=== PATIENT | male | born 1965 | race Caucasian/White ===

== ENCOUNTER 2024-02-01 15:20 | Inpatient (IN) | payer MEDICAID ==
[~2024-02-01] VITALS: Ht 175.3 cm; Wt 147.4 kg
[2024-02-01 15:20] VITALS: BP_SYST 138; PULSE 117; RESP 20; TEMP 103.3; O2SAT 98
[2024-02-01] MEDS ORDERED: iohexoL 350 mgI/mL, 100 ML INFUS..BTL IV ONE (15:25)
[2024-02-01] MEDS ORDERED: AMMONIA 1 EA TOWELETTE INH ONE (15:58)
[2024-02-01 16:03] LABS: HEMATOCRIT 39.1 % (36-54); HEMOGLOBIN 13.6 g/dL (14.0-18.0); MEAN CORPUSCULAR HEMOGLOBIN 29 pg (27-31); MEAN CORPUSCULAR HGB CONC 35 % (32-36); MEAN CORPUSCULAR VOLUME 82 fL (79.0-98.0); PLATELET COUNT (AUTO) 141 K/uL (130-430); RED BLOOD CELL COUNT(AUTO) 4.75 MIL/uL (4.2-6.2); RED CELL DISTRIBUTION WIDTH 13.8 % (9.0-15.0)
[2024-02-01 16:07] LABS: WHITE BLOOD COUNT (AUTO) 28.6 K/uL (4.8-10.8)
[2024-02-01 16:13] LABS: INR 1.4 (0.80-1.20); PROTHROMBIN TIME 14.3 SECS (9.5-12.5)
[2024-02-01 16:18] LABS: BAND % (MANUAL) 11 % (0-6); BASOPHILS % (MANUAL) 0 % (0-2); EOSINOPHILS % (MANUAL) 0 % (0-7); LYMPHOCYTES % (MANUAL) 3 % (20-46); MONOCYTES % (MANUAL) 3 % (0-11); PLATELET ESTIMATE ADEQUATE (ADEQUATE)
[2024-02-01] MEDS ORDERED: cefTRIAXone 2 GM VIAL ONE (16:28)
[2024-02-01 16:44] LABS: ALANINE AMINOTRANSFERASE 16 U/L (12-78); ALBUMIN 2.9 g/dL (3.4-4.8); ANION GAP 9 (5-15); ASPARTATE AMINOTRANSFERASE 19 U/L (10-37); BILIRUBIN,DIRECT 0.1 mg/dL (0.0-0.3); CALCIUM 7.9 mg/dL (8.4-11.0); CARBON DIOXIDE 25 mmol/L (23-29); CHLORIDE 94 mmol/L (98-107); CREATINE KINASE, TOTAL 162 U/L (39-308); CREATININE 1.19 mg/dL (0.55-1.30); GFR AFRICAN AMERICAN 81 mL/min (>90); GLUCOSE 210 mg/dL (74-106); POTASSIUM 3.6 mmol/L (3.5-5.1); SALICYLATE 1 mg/dL (3-30); SODIUM SERUM 128 mmol/L (136-145); TOTAL BILIRUBIN 0.9 mg/dL (0.0-1.0); UREA NITROGEN, BLOOD 19 mg/dL (8-21)
[2024-02-01 16:45] LABS: ACETAMINOPHEN < 1 ug/mL (1-30); ALCOHOL, BLOOD < 3 mg/dL (<10); GFR NON AFRICAN-AMERICAN 67 mL/min (>90)
[2024-02-01 16:54] LABS: ACETONE, SERUM NEGATIVE (NEGATIVE)
[2024-02-01 16:55] LABS: BILIRUBIN,URINE NEGATIVE (NEGATIVE); BLOOD, URINE 1+ (NEGATIVE); COLOR,URINE YELLOW (YELLOW); GLUCOSE,URINE NEGATIVE (NEGATIVE); KETONES,URINE NEGATIVE (NEGATIVE); LEUKOCYTE ESTERASE ,URINE 1+ (NEGATIVE); NITRITE, URINE NEGATIVE (NEGATIVE); PROTEIN URINE 1+ (NEGATIVE)
[2024-02-01 17:02] LABS: CLARITY/URINE HAZY (CLEAR)
[2024-02-01 17:03] LABS: BACTERIA,URINE MODERATE /HPF (None Seen); MUCUS,URINE None Seen /LPF (None Seen); RBC,URINE NONE SEEN /HPF (0-3)
[2024-02-01 17:07] LABS: BARBITURATE, URINE NEGATIVE (NEG <=200); BENZODIAZEPINE, URINE NEGATIVE (NEG <=150); CANNABINOID, URINE NEGATIVE (NEG <=50); COCAINE, URINE NEGATIVE (NEG <=150); METHAMPHETAMINES SCREEN,URINE POSITIVE (NEG <=500); OPIATE, URINE NEGATIVE (NEG <=100); PHENCYCLIDINE SCREEN,URINE NEGATIVE (NEG <=25); UR TRICYCLIC ANTIDEPRESSANTS NEGATIVE (NEG <=300); URINE AMPHETAMINE POSITIVE (NEG <=500); URINE METHADONE NEGATIVE (NEG <=200); URINE OXYCODONE SCREEN NEGATIVE (NEG <=100)
[2024-02-01] MEDS: IBUPROFEN 800 MG TABLET PO ONE (18:39)
[2024-02-01] MEDS: NACL 0.9% 1,000 ML IV ONE (20:09)
[2024-02-01] MEDS: ACETAMINOPHEN 500 MG TABLET PO ONE (20:19)
[2024-02-01] MEDS ORDERED: MAGNESIUM SULFATE 50 ML IV PRN (20:45)
[2024-02-01] MEDS ORDERED: DEXTROSE 50% JECT 50 ML DISP.SYRIN IVP PRN (20:45)
[2024-02-01] MEDS ORDERED: ONDANSETRON HCL 4 MG/2 ML VIAL IVP PRN (20:45)
[2024-02-01] MEDS ORDERED: ACETAMINOPHEN 325 MG TABLET PO PRN (20:45)
[2024-02-01] MEDS ORDERED: MUPIROCIN 2% TOPICAL OINTMENT 22 GM NS PRN (20:45)
[2024-02-01] MEDS: HEPARIN SODIUM,PORCINE 5,000 UNITS/ML VIAL SUBCUT SCH (21:19)
[2024-02-01] MEDS ORDERED: HEPARIN SODIUM,PORCINE 5,000 UNITS/ML VIAL ONE (21:19)
[2024-02-01 21:56] VITALS: BP_SYST 115; PULSE 96; RESP 20; TEMP 98.6; O2SAT 94
[2024-02-01] MEDS: NACL 0.9% 1,000 ML IV SCH (22:35)
[2024-02-01] MEDS: VANCOMYCIN HCL 1.25 GM/NS 250 ML IV SCH (22:36)
[2024-02-02] VITALS: BP_SYST 113; PULSE 91; RESP 20; TEMP 99; O2SAT 97
[2024-02-02 05:19] LABS: BASOPHILS # (AUTO) 0.1 K/uL (0.0-0.2); BASOPHILS % (AUTO) 0.2 % (0.0-2.0); HEMATOCRIT 39.1 % (36-54); HEMOGLOBIN 13.4 g/dL (14.0-18.0); LYMPHOCYTES # (AUTO) 1.2 K/uL (1.0-5.5); LYMPHOCYTES % (AUTO) 5.6 % (20.5-51.5); MEAN CORPUSCULAR HEMOGLOBIN 29 pg (27-31); MEAN CORPUSCULAR HGB CONC 34 % (32-36); MEAN CORPUSCULAR VOLUME 84 fL (79.0-98.0); MONOCYTES # (AUTO) 1.6 K/uL (0.0-1.0); MONOCYTES % (AUTO) 7.2 % (1.7-9.3); NEUTROPHILS # (AUTO) 19.4 K/uL (1.8-7.7); PLATELET COUNT (AUTO) 136 K/uL (130-430); RED BLOOD CELL COUNT(AUTO) 4.67 MIL/uL (4.2-6.2); RED CELL DISTRIBUTION WIDTH 13.8 % (9.0-15.0); WHITE BLOOD COUNT (AUTO) 22.3 K/uL (4.8-10.8)
[2024-02-02 05:41] LABS: CALCIUM 7.8 mg/dL (8.4-11.0); CREATININE 1.01 mg/dL (0.55-1.30)
[2024-02-02 08:00] VITALS: BP_SYST 112; PULSE 87; RESP 20; TEMP 96.2; O2SAT 94
[2024-02-02 08:31] VITALS: O2SAT 94
[2024-02-02] MEDS: LINEZOLID 300 ML IV SCH (08:55)
[2024-02-02] MEDS: PIPERACILLIN/TAZO 3.375 GM in D5W 50 ML IV SCH (08:55)
[2024-02-02 11:07] VITALS: BP_SYST 120; PULSE 73; RESP 16; TEMP 98.2; O2SAT 93
[2024-02-02] MEDS: INSULIN LISPRO SLIDING SCALE 100 UNITS/ML, 3 ML VIAL (humaLOG) SUBCUT PRN (11:31)
[2024-02-02] MEDS: HYDROcodone/ACETAMIN 5-325 MG TAB (NORCO/ VICODIN) PO PRN (14:39)
[2024-02-02 14:55] VITALS: BP_SYST 128; PULSE 97; RESP 16; TEMP 97.1; O2SAT 98
[2024-02-02] MEDS: VANCOMYCIN HCL 1.25 GM/NS 250 ML IV SCH (15:45)
[2024-02-02] MEDS ORDERED: ACETAMINOPHEN 500 MG TABLET PO PRN ×2 (19:45)
[2024-02-02] MEDS: ACETAMINOPHEN 500 MG TABLET PO PRN (19:46)
[2024-02-02 20:00] VITALS: BP_SYST 141; PULSE 96; RESP 20; TEMP 100.1; O2SAT 97
[2024-02-02] MEDS: NACL 0.9% 1,000 ML IV SCH (22:35)
[2024-02-03 01:17] VITALS: BP_SYST 103; PULSE 53; RESP 18; TEMP 98.4; O2SAT 97
[2024-02-03] MEDS: POTASSIUM CHLORIDE 20 MEQ TABLET.ER PO PRN (01:34)
[2024-02-03] MEDS: LORazepam 2 MG/ML VIAL IVP PRN (01:52)
[2024-02-03] MEDS ORDERED: VANCOMYCIN HCL 1.25 GM/NS 250 ML IV SCH (06:00)
[2024-02-03 06:16] LABS: BASOPHILS % (AUTO) 0.1 % (0.0-2.0); EOSINOPHILS # (AUTO) 0.1 K/uL (0.0-0.4); EOSINOPHILS % (AUTO) 0.5 % (0.0-4.0); HEMATOCRIT 37.4 % (36-54); HEMOGLOBIN 12.7 g/dL (14.0-18.0); LYMPHOCYTES # (AUTO) 1.6 K/uL (1.0-5.5); LYMPHOCYTES % (AUTO) 12.3 % (20.5-51.5); MEAN CORPUSCULAR HEMOGLOBIN 29 pg (27-31); MEAN CORPUSCULAR HGB CONC 34 % (32-36); MEAN CORPUSCULAR VOLUME 84 fL (79.0-98.0); MONOCYTES # (AUTO) 2.1 K/uL (0.0-1.0); NEUTROPHILS # (AUTO) 9.2 K/uL (1.8-7.7); NEUTROPHILS % (AUTO) 71.1 % (40.0-70.0); PLATELET COUNT (AUTO) 137 K/uL (130-430); RED BLOOD CELL COUNT(AUTO) 4.44 MIL/uL (4.2-6.2)
[2024-02-03 06:40] LABS: CALCIUM 8.2 mg/dL (8.4-11.0); CREATININE 0.77 mg/dL (0.55-1.30); POTASSIUM 3.5 mmol/L (3.5-5.1)
[2024-02-03 07:43] VITALS: BP_SYST 146; PULSE 103; RESP 19; TEMP 98.7; O2SAT 93
[2024-02-03 11:14] VITALS: BP_SYST 140; PULSE 95; RESP 16; TEMP 98.4; O2SAT 96
[2024-02-03] MEDS: PIPERACILLIN/TAZO 3.375 GM in D5W 50 ML IV SCH (12:20)
[2024-02-03] MEDS: VANCOMYCIN HCL 1.25 GM/NS 250 ML IV SCH (12:20)
[2024-02-03 15:04] VITALS: BP_SYST 177; PULSE 86; RESP 15; TEMP 98.2; O2SAT 95
[2024-02-03] MEDS ORDERED: hydrALAZINE HCL 20 MG/ML VIAL IVP PRN (18:00)
[2024-02-03 20:00] VITALS: BP_SYST 152; PULSE 94; RESP 20; TEMP 99.2; O2SAT 94
[2024-02-04 00:05] VITALS: BP_SYST 146; PULSE 92; RESP 18; TEMP 97.6; O2SAT 99
[2024-02-04 05:49] LABS: BASOPHILS % (AUTO) 0.4 % (0.0-2.0); EOSINOPHILS # (AUTO) 0.1 K/uL (0.0-0.4); EOSINOPHILS % (AUTO) 1.1 % (0.0-4.0); HEMATOCRIT 36.7 % (36-54); HEMOGLOBIN 12.7 g/dL (14.0-18.0); LYMPHOCYTES % (AUTO) 19.3 % (20.5-51.5); MEAN CORPUSCULAR HEMOGLOBIN 29 pg (27-31); MEAN CORPUSCULAR HGB CONC 35 % (32-36); MEAN CORPUSCULAR VOLUME 84 fL (79.0-98.0); MONOCYTES # (AUTO) 1.6 K/uL (0.0-1.0); MONOCYTES % (AUTO) 15.3 % (1.7-9.3); NEUTROPHILS # (AUTO) 6.5 K/uL (1.8-7.7); NEUTROPHILS % (AUTO) 63.9 % (40.0-70.0); PLATELET COUNT (AUTO) 150 K/uL (130-430); RED BLOOD CELL COUNT(AUTO) 4.38 MIL/uL (4.2-6.2); RED CELL DISTRIBUTION WIDTH 13.9 % (9.0-15.0); WHITE BLOOD COUNT (AUTO) 10.1 K/uL (4.8-10.8)
[2024-02-04 05:55] LABS: CALCIUM 8.3 mg/dL (8.4-11.0); CREATININE 0.66 mg/dL (0.55-1.30); POTASSIUM 3.8 mmol/L (3.5-5.1)
[2024-02-04 07:35] VITALS: BP_SYST 143; PULSE 93; RESP 18; TEMP 97.9; O2SAT 97
[2024-02-04] MEDS: DOCUSATE SODIUM 100 MG CAPSULE PO PRN (09:12)
[2024-02-04] MEDS ORDERED: hydrALAZINE HCL 25 MG TABLET PO PRN (10:45)
[2024-02-04 12:32] VITALS: BP_SYST 144; PULSE 91; RESP 19; TEMP 97.8; O2SAT 97
[2024-02-04] MEDS: LOSARTAN POTASSIUM 25 MG TABLET PO ONE (12:50)
[2024-02-04] MEDS: HEPARIN SODIUM,PORCINE 5,000 UNITS/ML VIAL SUBCUT SCH (14:20)
[2024-02-04 16:48] VITALS: BP_SYST 142; PULSE 92; RESP 18; TEMP 98; O2SAT 98
[2024-02-04 20:00] VITALS: BP_SYST 141; PULSE 95; RESP 18; TEMP 98.6; O2SAT 96
[2024-02-04] MEDS: ZOLPIDEM TARTRATE 5 MG TABLET PO PRN (23:17)
[2024-02-05 00:10] VITALS: BP_SYST 153; PULSE 82; RESP 20; TEMP 98.2; O2SAT 97
[2024-02-05 08:00] VITALS: BP_SYST 157; PULSE 75; RESP 16; TEMP 98.1; O2SAT 94
[2024-02-05] MEDS ORDERED: LOSARTAN POTASSIUM 25 MG TABLET PO SCH (09:00)
[2024-02-05] MEDS: LOSARTAN POTASSIUM 50 MG TABLET (COZAAR) PO SCH (10:44)
[2024-02-05 11:21] LABS: BASOPHILS % (AUTO) 0.5 % (0.0-2.0); EOSINOPHILS # (AUTO) 0.2 K/uL (0.0-0.4); EOSINOPHILS % (AUTO) 1.7 % (0.0-4.0); HEMATOCRIT 39.3 % (36-54); HEMOGLOBIN 13.5 g/dL (14.0-18.0); LYMPHOCYTES # (AUTO) 1.8 K/uL (1.0-5.5); LYMPHOCYTES % (AUTO) 18.8 % (20.5-51.5); MEAN CORPUSCULAR HEMOGLOBIN 29 pg (27-31); MEAN CORPUSCULAR HGB CONC 34 % (32-36); MEAN CORPUSCULAR VOLUME 84 fL (79.0-98.0); MONOCYTES # (AUTO) 1.2 K/uL (0.0-1.0); MONOCYTES % (AUTO) 12.9 % (1.7-9.3); NEUTROPHILS # (AUTO) 6.4 K/uL (1.8-7.7); NEUTROPHILS % (AUTO) 66.1 % (40.0-70.0); PLATELET COUNT (AUTO) 200 K/uL (130-430); RED BLOOD CELL COUNT(AUTO) 4.66 MIL/uL (4.2-6.2); RED CELL DISTRIBUTION WIDTH 13.7 % (9.0-15.0); WHITE BLOOD COUNT (AUTO) 9.6 K/uL (4.8-10.8)
[2024-02-05 11:27] LABS: CALCIUM 8.6 mg/dL (8.4-11.0); CREATININE 0.68 mg/dL (0.55-1.30); POTASSIUM 4.1 mmol/L (3.5-5.1)
[2024-02-05 12:57] VITALS: BP_SYST 146; PULSE 85; RESP 19; TEMP 98.4; O2SAT 98
[2024-02-05 16:51] VITALS: BP_SYST 150; PULSE 80; RESP 17; TEMP 98.2; O2SAT 95
[2024-02-05 19:20] VITALS: BP_SYST 155; PULSE 90; RESP 18; TEMP 97.7; O2SAT 94
[2024-02-06 00:40] VITALS: BP_SYST 151; PULSE 83; RESP 16; TEMP 97.7; O2SAT 95
[2024-02-06 06:25] LABS: BASOPHILS # (AUTO) 0.1 K/uL (0.0-0.2); BASOPHILS % (AUTO) 0.6 % (0.0-2.0); EOSINOPHILS # (AUTO) 0.2 K/uL (0.0-0.4); EOSINOPHILS % (AUTO) 2.2 % (0.0-4.0); HEMATOCRIT 39.7 % (36-54); HEMOGLOBIN 13.6 g/dL (14.0-18.0); LYMPHOCYTES # (AUTO) 2.4 K/uL (1.0-5.5); LYMPHOCYTES % (AUTO) 21.9 % (20.5-51.5); MEAN CORPUSCULAR HEMOGLOBIN 29 pg (27-31); MEAN CORPUSCULAR HGB CONC 34 % (32-36); MEAN CORPUSCULAR VOLUME 84 fL (79.0-98.0); MONOCYTES # (AUTO) 1.5 K/uL (0.0-1.0); MONOCYTES % (AUTO) 13.2 % (1.7-9.3); NEUTROPHILS # (AUTO) 6.8 K/uL (1.8-7.7); NEUTROPHILS % (AUTO) 62.1 % (40.0-70.0); PLATELET COUNT (AUTO) 224 K/uL (130-430); RED BLOOD CELL COUNT(AUTO) 4.76 MIL/uL (4.2-6.2); RED CELL DISTRIBUTION WIDTH 13.6 % (9.0-15.0)
[2024-02-06 06:55] LABS: CALCIUM 8.5 mg/dL (8.4-11.0); CREATININE 0.75 mg/dL (0.55-1.30); POTASSIUM 4.1 mmol/L (3.5-5.1)
[2024-02-06 08:00] VITALS: BP_SYST 127; PULSE 92; RESP 20; TEMP 98.5; O2SAT 96
[2024-02-06 11:15] VITALS: BP_SYST 160; PULSE 74; RESP 15; TEMP 97.5; O2SAT 95
[2024-02-06] MEDS ORDERED: hydrALAZINE HCL 20 MG/ML VIAL IVP PRN (11:30)
[2024-02-06 11:56] VITALS: BP_SYST 135; PULSE 88; RESP 16; TEMP 97.5; O2SAT 95
[2024-02-06] MEDS ORDERED: CEFT500V5 INJ (13:15)
[2024-02-06] MEDS ORDERED: Vancomycin Per Pharmacy IV (13:15)
[2024-02-06] MEDS ORDERED: LOSA-413 PO (13:15)
[2024-02-06] MEDS ORDERED: METF-380 PO (13:15)
[2024-02-06 20:03] VITALS: BP_SYST 110; PULSE 89; RESP 20; TEMP 97.3; O2SAT 95
[2024-02-06] MEDS: LOSARTAN POTASSIUM 50 MG TABLET (COZAAR) PO SCH (21:07)
[2024-02-07 00:46] VITALS: BP_SYST 123; PULSE 91; RESP 19; TEMP 97.9; O2SAT 95
[2024-02-07 08:00] VITALS: BP_SYST 153; PULSE 78; RESP 16; TEMP 98.3; O2SAT 97
[2024-02-07 12:00] VITALS: BP_SYST 152; PULSE 69; RESP 20; TEMP 98.1; O2SAT 96
[2024-02-07] MEDS ORDERED: DOXY100C5 PO (15:41)
[2024-02-07] MEDS ORDERED: AUG875 PO (15:41)
[2024-02-07 15:56] VITALS: BP_SYST 152; PULSE 69; RESP 20; TEMP 98.1; O2SAT 96
[2024-02-07] MEDS ORDERED: DOXYCYCLINE HYCLATE 100 MG TABLET PO SCH (21:00)
[2024-02-07] MEDS ORDERED: AMOXICILLIN/POTASSIUM CLAV 875 MG TABLET PO SCH (21:00)
== END 2024-02-07 16:20 | disposition home or self-care (01) | DRG 720 ==
LOC: SED 15:20 → STU 20:38 → EDBD 20:38 → STU 21:37 → SMU 02-04 10:09
PROVIDERS: ADMIT General Practice; ATTEND General Practice
PROC: 05HC33Z Insertion of Infusion Device into Left Basilic Vein, Percutaneous Approach (ICD-10-PCS; principal; 2024-02-04)
DX: A41.9 Sepsis, unspecified organism (principal); G93.41 Metabolic encephalopathy; E44.0 Moderate protein-calorie malnutrition; L03.116 Cellulitis of left lower limb; I88.8 Other nonspecific lymphadenitis; E11.9 Type 2 diabetes mellitus without complications; E66.01 Morbid (severe) obesity due to excess calories; I10 Essential (primary) hypertension; N39.0 Urinary tract infection, site not specified; Z79.899 Other long term (current) drug therapy; Z68.42 Body mass index [BMI] 45.0-49.9, adult; Z68.41 Body mass index [BMI] 40.0-44.9, adult
CPT/HCPCS: 36415; 70450-TC; 70496; 70498; 71045; 80048; 80076; 80202; 80307; 81000; 81001; 81015; 82009; 82140; 82550; 82948; 83037; 83605; 83735; 84484; 85007; 85025; 85027; 85610; 85730; 87040; 87081; 87086; 93306; 93970; 96361; 96365; 97112-GP; 97116-GP; 99291; G0378; G0480; G0481; G0482; J0360; J0696; J1644; J2020; J2060; J2543; J3370; J7060; Q9967

== ENCOUNTER 2024-05-19 18:44 | Emergency (ER) | payer MEDICAID ==
[~2024-05-19] VITALS: Ht 180.3 cm; Wt 111.1 kg
[~2024-05-19 18:44] MED LIST: AUG875 PO; DOXY100C5 PO; LOSA-413 PO; METF-380 PO
[2024-05-19 19:03] VITALS: BP_SYST 124; PULSE 92; RESP 19; TEMP 98.5; O2SAT 95
[2024-05-19] MEDS ORDERED: SULF1TAB48 PO (19:26)
[2024-05-19] MEDS ORDERED: CEPH250C PO (19:26)
[2024-05-19] MEDS ORDERED: HYDR-3921 PO (19:27)
[2024-05-19] MEDS: SULFAMETHOXAZOLE/TRIMETHOPR DS 1 TABLET PO ONE (19:38)
[2024-05-19] MEDS: HYDROcodone/ACETAMIN 5-325 MG TAB (NORCO/ VICODIN) PO ONE (19:38)
[2024-05-19] MEDS: cephALEXin 500 MG CAPSULE PO ONE (19:44)
[2024-05-19 19:45] VITALS: BP_SYST 124; PULSE 92; RESP 19; TEMP 98.5; O2SAT 95
[2024-05-19] MEDS ORDERED: cephALEXin 500 MG CAPSULE ONE (19:46)
== END 2024-05-19 19:45 | disposition home or self-care (01) ==
LOC: SED 18:44
DX: L03.115 Cellulitis of right lower limb (principal); F17.200 Nicotine dependence, unspecified, uncomplicated; Z79.899 Other long term (current) drug therapy; Z79.2 Long term (current) use of antibiotics
CPT/HCPCS: 99284

== ENCOUNTER 2024-05-20 14:58 | Inpatient (IN) | payer MEDICAID ==
[~2024-05-20] VITALS: Ht 180.3 cm; Wt 149.2 kg
[~2024-05-20 14:58] MED LIST changes: +CEPH250C PO; +HYDR-3921 PO; +SULF1TAB48 PO
[2024-05-20 15:05] VITALS: BP_SYST 156; PULSE 91; RESP 20; TEMP 97.5; O2SAT 93
[2024-05-20 15:58] LABS: HEMOGLOBIN 13.1 g/dL (14.0-18.0)
[2024-05-20 16:02] LABS: BASOPHILS # (AUTO) 0.1 K/uL (0.0-0.2); BASOPHILS % (AUTO) 0.5 % (0.0-2.0); EOSINOPHILS # (AUTO) 0.2 K/uL (0.0-0.4); EOSINOPHILS % (AUTO) 1.4 % (0.0-4.0); HEMATOCRIT 37.1 % (36-54); LYMPHOCYTES # (AUTO) 2.3 K/uL (1.0-5.5); LYMPHOCYTES % (AUTO) 18.1 % (20.5-51.5); MEAN CORPUSCULAR HEMOGLOBIN 30 pg (27-31); MEAN CORPUSCULAR HGB CONC 35 % (32-36); MEAN CORPUSCULAR VOLUME 84 fL (79.0-98.0); MONOCYTES # (AUTO) 1.2 K/uL (0.0-1.0); MONOCYTES % (AUTO) 9.9 % (1.7-9.3); NEUTROPHILS # (AUTO) 8.8 K/uL (1.8-7.7); NEUTROPHILS % (AUTO) 70.1 % (40.0-70.0); PLATELET COUNT (AUTO) 172 K/uL (130-430); RED BLOOD CELL COUNT(AUTO) 4.43 MIL/uL (4.2-6.2); RED CELL DISTRIBUTION WIDTH 13.4 % (9.0-15.0); WHITE BLOOD COUNT (AUTO) 12.6 K/uL (4.8-10.8)
[2024-05-20 16:24] LABS: ALBUMIN 3.1 g/dL (3.4-4.8); BILIRUBIN,DIRECT 0.1 mg/dL (0.0-0.3); CALCIUM 8.3 mg/dL (8.4-11.0); CREATININE 0.87 mg/dL (0.55-1.30); TOTAL BILIRUBIN 0.4 mg/dL (0.0-1.0); TOTAL PROTEIN, SERUM 6.8 g/dL (6.4-8.3)
[2024-05-20] MEDS: HYDROmorphone 1 MG/ML INJ. CARTRIDGE IM ONE (16:30)
[2024-05-20] MEDS: ONDANSETRON HCL 4 MG/2 ML VIAL IVP ONE (16:32)
[2024-05-20] MEDS: CEFAZOLIN 1 GM IVPB PREMIX 50 ML IV ONE (16:32)
[2024-05-20] MEDS: CLINDAMYCIN 600 mg/50mL D5W 50 ML IV ONE (16:32)
[2024-05-20] MEDS ORDERED: MORPHINE 4 MG INJ. 4 MG/ML VIAL IVP PRN (18:45)
[2024-05-20] MEDS ORDERED: NACL 0.9% 1,000 ML IV SCH (18:45)
[2024-05-20] MEDS ORDERED: ONDANSETRON HCL 4 MG/2 ML VIAL IVP PRN (19:15)
[2024-05-20] MEDS ORDERED: ACETAMINOPHEN 325 MG TABLET PO PRN (19:15)
[2024-05-20 20:43] VITALS: BP_SYST 141; PULSE 84; RESP 18; TEMP 97.7; O2SAT 95
[2024-05-20] MEDS: amLODIPine BESYLATE 10 MG TABLET PO ONE (21:55)
[2024-05-20] MEDS: PIPERACILLIN/TAZO 3.375 GM in NS 50 ML IV ONE (21:56)
[2024-05-20] MEDS: PIPERACILLIN/TAZOBACTAM 3.375 GM/VIAL (ZOSYN) IV ONE (22:02)
[2024-05-20] MEDS: VANCOMYCIN HCL 1000 MG/VIAL IV ONE (22:02)
[2024-05-20] MEDS: VANCOMYCIN HCL 1 GM/NS PREMIX 250 ML IV ONE (23:10)
[2024-05-21] VITALS: BP_SYST 145; PULSE 78; RESP 18; TEMP 97.8; O2SAT 97
[2024-05-21] MEDS ORDERED: VANCOMYCIN HCL 1,000 MG in NS 250 ML IV SCH (01:00)
[2024-05-21] MEDS: INSULIN LISPRO SLIDING SCALE 100 UNITS/ML, 3 ML VIAL (humaLOG) SUBCUT PRN (06:00)
[2024-05-21 08:02] VITALS: BP_SYST 125; PULSE 74; RESP 18; TEMP 98.1; O2SAT 99
[2024-05-21 08:05] VITALS: O2SAT 99
[2024-05-21] MEDS: ASPIRIN 81 MG TAB.CHEW PO SCH (08:53)
[2024-05-21 09:37] LABS: BASOPHILS # (AUTO) 0.1 K/uL (0.0-0.2); BASOPHILS % (AUTO) 0.6 % (0.0-2.0); EOSINOPHILS # (AUTO) 0.2 K/uL (0.0-0.4); EOSINOPHILS % (AUTO) 1.7 % (0.0-4.0); HEMATOCRIT 39.2 % (36-54); LYMPHOCYTES # (AUTO) 1.6 K/uL (1.0-5.5); LYMPHOCYTES % (AUTO) 16.2 % (20.5-51.5); MEAN CORPUSCULAR HEMOGLOBIN 29 pg (27-31); MEAN CORPUSCULAR HGB CONC 33 % (32-36); MEAN CORPUSCULAR VOLUME 87 fL (79.0-98.0); MONOCYTES # (AUTO) 1.1 K/uL (0.0-1.0); MONOCYTES % (AUTO) 10.9 % (1.7-9.3); NEUTROPHILS % (AUTO) 70.6 % (40.0-70.0); PLATELET COUNT (AUTO) 183 K/uL (130-430); RED BLOOD CELL COUNT(AUTO) 4.53 MIL/uL (4.2-6.2); RED CELL DISTRIBUTION WIDTH 13.3 % (9.0-15.0); WHITE BLOOD COUNT (AUTO) 9.9 K/uL (4.8-10.8)
[2024-05-21 09:47] LABS: CALCIUM 8.5 mg/dL (8.4-11.0); CREATININE 0.76 mg/dL (0.55-1.30); POTASSIUM 4.2 mmol/L (3.5-5.1); TOTAL BILIRUBIN 0.4 mg/dL (0.0-1.0)
[2024-05-21 11:27] VITALS: BP_SYST 136; PULSE 82; RESP 16; TEMP 98.1; O2SAT 95
[2024-05-21] MEDS ORDERED: VANCOMYCIN HCL 1,750 MG in NS 500 ML IV SCH (12:00)
[2024-05-21 12:53] LABS: CHOLESTEROL 155 mg/dL (<200); HDL CHOLESTEROL 33 mg/dL (>45); TRIGLYCERIDES 133 mg/dL (30-150)
[2024-05-21] MEDS: VANCOMYCIN HCL 1,000 MG in NS 250 ML IV SCH (13:31)
[2024-05-21 15:11] VITALS: BP_SYST 140; PULSE 77; RESP 16; TEMP 98.3; O2SAT 93
[2024-05-21] MEDS: ENOXAPARIN SODIUM 40 MG/0.4 ML SYRINGE SUBCUT ONE (15:13)
[2024-05-21] MEDS: ATORVASTATIN 20 MG TABLET PO ONE (17:36)
[2024-05-21 20:05] VITALS: BP_SYST 163; PULSE 70; RESP 19; TEMP 97.5; O2SAT 97
[2024-05-22 00:05] VITALS: BP_SYST 147; PULSE 89; RESP 18; TEMP 97.6; O2SAT 95
[2024-05-22 07:50] LABS: BASOPHILS # (AUTO) 0.1 K/uL (0.0-0.2); BASOPHILS % (AUTO) 0.7 % (0.0-2.0); EOSINOPHILS # (AUTO) 0.2 K/uL (0.0-0.4); EOSINOPHILS % (AUTO) 2.4 % (0.0-4.0); HEMATOCRIT 41.3 % (36-54); HEMOGLOBIN 13.8 g/dL (14.0-18.0); LYMPHOCYTES # (AUTO) 2.2 K/uL (1.0-5.5); LYMPHOCYTES % (AUTO) 21.7 % (20.5-51.5); MEAN CORPUSCULAR HEMOGLOBIN 29 pg (27-31); MEAN CORPUSCULAR HGB CONC 33 % (32-36); MEAN CORPUSCULAR VOLUME 86 fL (79.0-98.0); MONOCYTES # (AUTO) 1.2 K/uL (0.0-1.0); NEUTROPHILS # (AUTO) 6.4 K/uL (1.8-7.7); NEUTROPHILS % (AUTO) 63.2 % (40.0-70.0); PLATELET COUNT (AUTO) 189 K/uL (130-430); RED BLOOD CELL COUNT(AUTO) 4.81 MIL/uL (4.2-6.2); RED CELL DISTRIBUTION WIDTH 13.6 % (9.0-15.0); WHITE BLOOD COUNT (AUTO) 10.1 K/uL (4.8-10.8)
[2024-05-22 08:00] VITALS: O2SAT 96
[2024-05-22 08:06] VITALS: BP_SYST 144; PULSE 89; RESP 20; TEMP 98.4; O2SAT 89
[2024-05-22 08:20] LABS: ALBUMIN 3.1 g/dL (3.4-4.8); CALCIUM 8.7 mg/dL (8.4-11.0); CREATININE 0.73 mg/dL (0.55-1.30); POTASSIUM 4.4 mmol/L (3.5-5.1); TOTAL BILIRUBIN 0.3 mg/dL (0.0-1.0); TOTAL PROTEIN, SERUM 7.3 g/dL (6.4-8.3)
[2024-05-22] MEDS: HYDROcodone/ACETAMIN 5-325 MG TAB (NORCO/ VICODIN) PO PRN (09:29)
[2024-05-22] MEDS: ATORVASTATIN 20 MG TABLET PO SCH (09:29)
[2024-05-22] MEDS: ENOXAPARIN SODIUM 40 MG/0.4 ML SYRINGE SUBCUT SCH (09:30)
[2024-05-22] MEDS: LOSARTAN POTASSIUM 50 MG TABLET (COZAAR) PO ONE (10:02)
[2024-05-22] MEDS: PIPERACILLIN/TAZO 4.5 GM in NS 100 ML IV ONE (10:45)
[2024-05-22 11:00] VITALS: BP_SYST 156; PULSE 71; RESP 16; TEMP 97.2; O2SAT 96
[2024-05-22 15:10] VITALS: BP_SYST 157; PULSE 76; RESP 16; TEMP 97.9; O2SAT 97
[2024-05-22] MEDS: PIPERACILLIN/TAZO 3.375 GM in NS 50 ML IV SCH (16:02)
[2024-05-22 19:50] VITALS: BP_SYST 155; PULSE 79; RESP 19; TEMP 99.2; O2SAT 98
[2024-05-22] MEDS: LOSARTAN POTASSIUM 50 MG TABLET (COZAAR) PO SCH (20:55)
[2024-05-23 00:14] VITALS: BP_SYST 141; PULSE 82; RESP 18; TEMP 97.9; O2SAT 97
[2024-05-23 07:54] LABS: BASOPHILS # (AUTO) 0.1 K/uL (0.0-0.2); BASOPHILS % (AUTO) 0.6 % (0.0-2.0); EOSINOPHILS # (AUTO) 0.3 K/uL (0.0-0.4); EOSINOPHILS % (AUTO) 2.3 % (0.0-4.0); HEMOGLOBIN 13.9 g/dL (14.0-18.0); LYMPHOCYTES % (AUTO) 17.4 % (20.5-51.5); MEAN CORPUSCULAR HEMOGLOBIN 29 pg (27-31); MEAN CORPUSCULAR HGB CONC 33 % (32-36); MEAN CORPUSCULAR VOLUME 86 fL (79.0-98.0); MONOCYTES # (AUTO) 1.4 K/uL (0.0-1.0); MONOCYTES % (AUTO) 11.8 % (1.7-9.3); NEUTROPHILS % (AUTO) 67.9 % (40.0-70.0); PLATELET COUNT (AUTO) 211 K/uL (130-430); RED BLOOD CELL COUNT(AUTO) 4.88 MIL/uL (4.2-6.2); RED CELL DISTRIBUTION WIDTH 13.5 % (9.0-15.0); WHITE BLOOD COUNT (AUTO) 11.8 K/uL (4.8-10.8)
[2024-05-23 08:12] VITALS: BP_SYST 149; PULSE 84; RESP 20; TEMP 97.2; O2SAT 91
[2024-05-23 08:45] LABS: CALCIUM 8.6 mg/dL (8.4-11.0); CREATININE 0.64 mg/dL (0.55-1.30); POTASSIUM 4.3 mmol/L (3.5-5.1); TOTAL BILIRUBIN 0.3 mg/dL (0.0-1.0); TOTAL PROTEIN, SERUM 7.3 g/dL (6.4-8.3)
[2024-05-23 12:38] VITALS: BP_SYST 134; PULSE 80; TEMP 96.8; O2SAT 98
[2024-05-23] MEDS: amLODIPine BESYLATE 5 MG TABLET PO ONE (14:26)
[2024-05-23 16:20] VITALS: BP_SYST 129; PULSE 85; RESP 24; TEMP 98; O2SAT 96
[2024-05-23 20:05] VITALS: BP_SYST 125; PULSE 70; RESP 18; TEMP 98; O2SAT 96
[2024-05-24] MEDS ORDERED: BALSAM PERU/CASTOR OIL 56.7 GM OINT...G. TP SCH (09:00)
[2024-05-24] MEDS ORDERED: amLODIPine BESYLATE 5 MG TABLET PO SCH (09:00)
== END 2024-05-23 20:55 | disposition left against medical advice (07) | DRG 720 ==
LOC: SED 14:58 → SMU 17:52 → STU 20:19 → SMU 05-22 10:29
PROVIDERS: ADMIT Student in an Organized Health Care Education/Training Program; ATTEND Student in an Organized Health Care Education/Training Program
DX: A41.9 Sepsis, unspecified organism (principal); J96.00 Acute respiratory failure, unspecified whether with hypoxia or hypercapnia; I50.31 Acute diastolic (congestive) heart failure; E44.1 Mild protein-calorie malnutrition; I11.0 Hypertensive heart disease with heart failure; Z59.00 Homelessness unspecified; R73.9 Hyperglycemia, unspecified; Z53.29 Procedure and treatment not carried out because of patient's decision for other reasons; L03.115 Cellulitis of right lower limb; Z79.899 Other long term (current) drug therapy; Z88.8 Allergy status to other drugs, medicaments and biological substances; Z68.45 Body mass index [BMI] 70 or greater, adult
CPT/HCPCS: 36415; 71045; 80048; 80053; 80061; 80076; 80202; 82948; 83037; 83605; 83690; 83735; 83880; 84484; 85025; 87040; 93005; 93971; 96365; 99285; G0378; J0690; J1170; J1650; J2405; J2543; J3370; J3490; J7040; J7050